=== PATIENT | male | born 1990 | race Caucasian/White ===

== ENCOUNTER 2017-09-02 12:32 | Emergency (ER) | payer BC ==
--- NOTE | 2017-09-02 12:56 | EDM.PDOC ---
ED HPI GENERAL MEDICAL PROBLEM - General Chief Complaint: Back Pain or Injury Stated Complaint: NERVE PAIN ON SPINE Time Seen by Provider: 09/02/17 12:39 Source of Information: Reports: Patient History Limitations: Reports: No Limitations - History of Present Illness INITIAL COMMENTS - FREE TEXT/NARRATIVE: HISTORY AND PHYSICAL: History of present illness: Patient is a 27-year-old male who presents to the emergency room with complaints of upper back pain x 1 week. He denies any injury, trauma or falls. States that his muscles in his back [place] very "fatigued". And has been seeing a chiropractor for pain management. Has not found any relief with over-the- counter products or care coordination manager. Denies any numbness or tingling to his upper or lower extremities. No urinary or fecal incontinence. No visual changes, headache, chest pain, shortness of breath. No abdominal pain , nausea, vomiting or diarrhea. Review of systems: As per history of present illness and below otherwise all systems reviewed and negative. Past medical history: As per history of present illness and as reviewed below otherwise noncontributory. Surgical history: As per history of present illness and as reviewed below otherwise noncontributory. Social history: No reported history of drug or alcohol abuse. Family history: As per history of present illness and as reviewed below otherwise noncontributory. Physical exam: General: Developed and well nourished 27-year-old male. Alert and oriented. Nontoxic appearing and in no acute distress. HEENT: Atraumatic, normocephalic, pupils reactive, negative for conjunctival pallor or scleral icterus, mucous membranes moist, throat clear, neck supple, nontender, trachea midline. Lungs: Clear to auscultation, breath sounds equal bilaterally, chest nontender. Heart: S1S2, regular, negative for clicks, rubs, or JVD. Abdomen: Soft, nondistended, nontender. Negative for masses or hepatosplenomegaly. Negative for costovertebral tenderness. Pelvis: Stable nontender. Genitourinary: Deferred. Rectal: Deferred. C-spine/Back: No pinpoint vertebral tenderness upon palpation. Patient is ambulatory with a steady and even gait. No crepitus, step-offs or obvious deformities noted with back observation and palpation. No fecal or urinary incontinence. Does have muscular tenderness to the mid thoracic posterior back, bilaterally. Extremities: Atraumatic, negative for cords or calf pain. Neurovascular unremarkable. Neuro: Awake, alert, oriented. Cranial nerves II through XII unremarkable. Cerebellum unremarkable. Motor and sensory unremarkable throughout. Exam nonfocal. Chest x-ray is normal with no evidence of infiltrate or pneumonia. We'll treat as a muscular strain with Flexeril, Cataflam and Medrol Dosepak. Education was given to the patient. He voices understanding and is agreeable to plan of care. He denies any further questions at this time. Diagnostics: CXR Therapeutics: [] Impression: Muscular strain, thoracic back Plan: 1. Please take the medications as directed. Flexeril may cause drowsiness so do not take it with driving or needing to be functioning outside of the house. Please do not take any additional NSAIDs such as ibuprofen or Aleve while taking the Cataflam (anti-inflammatory). You may take Tylenol for breakthrough pain. 2. Gentle heat to the area intermittently throughout the day. Gentle stretching. 3. Follow up with her primary caregiver in the next couple days. Return to the ED as needed and as discussed. Definitive disposition and diagnosis as appropriate pending reevaluation and review of above. Duration: Day(s): Location: Reports: Back Pain between shoulders that radiates down spine Pain Score (Numeric/FACES): 6 - Related Data Allergies Allergy/AdvReac Type Severity Reaction Status Date / Time No Known Allergies Allergy Verified 09/02/17 12:56 Home Meds: Home Meds . [No Known Home Meds] 03/14/15 [History] Social & Family History - Tobacco Use Smoking Status *Q: Current Every Day Smoker Years of Tobacco use: 3 - Recreational Drug Use Recreational Drug Use: No ED ROS GENERAL - Review of Systems Review Of Systems: ROS reveals no pertinent complaints other than HPI. ED EXAM, UPPER BACK/NECK PAIN - Physical Exam Exam: See Below (See dictation) Course - Vital Signs Last Recorded V/S: Last Vital Signs Temp 98.8 F 09/02/17 12:56 Pulse 68 09/02/17 12:56 Resp 18 09/02/17 12:56 BP 158/97 H 09/02/17 12:56 Pulse Ox 97 09/02/17 12:56 Departure - Departure Time of Disposition: 13:31 Disposition: Home, Self-Care 01 Clinical Impression: Muscle strain - Discharge Information Instructions: Muscle Strain Referrals: PCP,None [Primary Care Provider] - Forms: ED Department Discharge Additional Instructions: My general discharge The following information is given to patients seen in the emergency department who are being discharged to home. This information is to outline your options for follow-up care. We provide all patients seen in our emergency department with a follow-up referral. The need for follow-up, as well as the timing and circumstances, are variable depending upon the specifics of your emergency department visit. If you don't have a primary care physician on staff, we will provide you with a referral. We always advise you to contact your personal physician following an emergency department visit to inform them of the circumstance of the visit and for follow-up with them and/or the need for any referrals to a consulting specialist. The emergency department will also refer you to a specialist when appropriate. This referral assures that you have the opportunity for follow-up care with a specialist. All of these measure are taken in an effort to provide you with optimal care, which includes your follow-up. Under all circumstances we always encourage you to contact your private physician who remains a resource for coordinating your care. When calling for follow-up care, please make the office aware that this follow-up is from your recent emergency room visit. If for any reason you are refused follow-up, please contact the [facility] Emergency Department at and asked to speak to the emergency department charge nurse. [facility] [address] [place] [id number] 1. Please take the medications as directed. Flexeril may cause drowsiness so do not take it with driving or needing to be functioning outside of the house. Please do not take any additional NSAIDs such as ibuprofen or Aleve while taking the Cataflam (anti-inflammatory). You may take Tylenol for breakthrough pain. 2. Gentle heat to the area intermittently throughout the day. Gentle stretching. 3. Follow up with her primary caregiver in the next couple days. Return to the ED as needed and as discussed.
[2017-09-02 12:59] VITALS: BP 158/97
--- NOTE | 2017-09-02 13:18 | CR ---
EXAMINATION: Two-view chest (PA and Lateral views). HISTORY: Shortness of breath. FINDINGS: The trachea is midline. The cardiomediastinal silhouette is within normal limits. No pulmonary infilt rates, effusions or pneumothorax. Osseous structures appear unremarkable. IMPRESSION: No acute cardiopulmonary process.
== END 2017-09-02 14:26 | disposition home or self-care (01) ==
LOC: MW.ED 12:32
DX: S29.012A Strain of muscle and tendon of back wall of thorax, initial encounter (principal); F17.200 Nicotine dependence, unspecified, uncomplicated; X58.XXXA Exposure to other specified factors, initial encounter
CPT/HCPCS: 71046; 71046-26; 99283